=== PATIENT | male | born 1995 | race Caucasian/White ===

== ENCOUNTER 2020-12-12 19:11 | Emergency (ER) | payer OTHER ==
[~2020-12-12] VITALS: Ht 170.2 cm; Wt 52.2 kg
[2020-12-12] MEDS ORDERED: ULTRAM50 MG (19:54)
[2020-12-12] MEDS ORDERED: ADVIL LIQUI-GE200 MG (19:55)
== END 2020-12-12 21:37 | disposition home or self-care (01) ==
LOC: ER 19:11
DX: S62.620A Displaced fracture of middle phalanx of right index finger, initial encounter for closed fracture (principal); S61.220A Laceration with foreign body of right index finger without damage to nail, initial encounter; W26.8XXA Contact with other sharp object(s), not elsewhere classified, initial encounter; Y93.89 Activity, other specified; Y92.018 Other place in single-family (private) house as the place of occurrence of the external cause; Y99.8 Other external cause status

== ENCOUNTER 2021-10-19 10:59 | Emergency (ER) | payer OTHER ==
[~2021-10-19] VITALS: Ht 170.2 cm; Wt 48.5 kg
[~2021-10-19 10:59] MED LIST: ADVIL LIQUI-GE200 MG; ULTRAM50 MG
[2021-10-19] MEDS ORDERED: DICLOFENAC POTA50 MG PO (13:52)
[2021-10-19] MEDS ORDERED: ORPHENADRINE C100 MG PO (13:52)
== END 2021-10-19 14:56 | disposition home or self-care (01) ==
LOC: ER 10:59
DX: M62.838 Other muscle spasm (principal)

== ENCOUNTER 2021-12-23 09:48 | Emergency (ER) | payer OTHER ==
[~2021-12-23] VITALS: Ht 170.2 cm; Wt 49.4 kg
[~2021-12-23 09:48] MED LIST changes: +DICLOFENAC POTA50 MG PO; +ORPHENADRINE C100 MG PO
== END 2021-12-23 13:20 | disposition home or self-care (01) ==
LOC: ER 09:48
DX: J10.1 Influenza due to other identified influenza virus with other respiratory manifestations (principal); Z20.822 Contact with and (suspected) exposure to COVID-19